=== PATIENT | male | born 1995 | race Caucasian/White ===

== ENCOUNTER 2022-03-10 22:32 | Emergency (ER) | payer OTHER ==
[~2022-03-10 22:32] MED LIST: NAPROSYN500 MG PO
[2022-03-10] MEDS ORDERED: CEPHALEXIN500 MG PO (23:51)
[2022-03-10] MEDS ORDERED: IBUPROFEN800 MG PO (23:51)
[2022-03-10] MEDS ORDERED: SILVADENE20 GM TP (23:51)
== END 2022-03-11 00:06 | disposition home or self-care (01) ==
LOC: ER1 22:32
DX: T22.211A Burn of second degree of right forearm, initial encounter (principal); T31.0 Burns involving less than 10% of body surface; F17.200 Nicotine dependence, unspecified, uncomplicated; X11.8XXA Contact with other hot tap-water, initial encounter; Y92.009 Unspecified place in unspecified non-institutional (private) residence as the place of occurrence of the external cause
CPT/HCPCS: 96372; 99283; J1885